=== PATIENT | male | born 1935 | race Caucasian/White ===

== ENCOUNTER 2024-07-17 14:53 | Outpatient (OUT) | payer MEDICARE, SELFPAY ==
--- NOTE | 2024-07-17 15:02 | MR_ITS ---
[place] [id number] Patient Name: ADIS OREILLY MRN: [facility]:[id number] date: 1935 Sex: M Assigned Patient Location: MRI Current Patient Location: Accession/Order Number: [id number] Exam Date: 07/17/2024 15:10 Report Date: 07/19/2024 08:33 At the request of: ALBERT COCHRAN Procedure: MR knee RT wo con EXAMINATION: MR knee RT wo con HISTORY: Right Knee Mass ; right knee pain after falling COMPARISON: No relevant comparison available. TECHNIQUE: A complete multi-planar MRI was performed. FINDINGS: MEDIAL COMPARTMENT MEDIAL MENISCUS: Marked tear versus maceration of the knee, posterior junction, and posterior horn. CARTILAGE: Moderate thinning. No focal defect. BONES: Small periarticular degenerative osteophytes. MCL AND MEDIAL CAPSULE: High-grade strain versus partial tear. LATERAL COMPARTMENT LATERAL MENISCUS: Possible tear involving undersurface of posterior horn. Prominent intrasubstance degeneration. CARTILAGE: Mild thinning without focal defect. BONES: Edema within posterior medial aspect of lateral femoral condyle at site of anterior cruciate ligament attachment. Prominent marrow edema within anterior lateral tibial plateau. Deep to site of anterior cruciate ligament attachment. No appreciable cortical disruption. Small periarticular degenerative osteophytes. LCL/POSTEROLAT COMPLEX: No appreciable tear or significant strain. ANTERIOR COMPARTMENT PATELLA: Small focal area of subchondral edema involving the superior aspect of the lateral facet due to overlying cartilage defect. CARTILAGE: Moderate-marked thinning with small focal defect involving superior lateral facet. TENDONS: Normal. EFFUSION: Moderate joint effusion. ACL: Disrupted. PCL: Normal appearing ligament. MENISCOFEMORAL: No appreciable abnormality of the meniscofemoral ligaments. OTHER: Large Henderson's cyst, 7.8 x 4.0 x 4.6 cm. MR/MR knee RT wo con IMPRESSION: 1. Marked tear versus maceration of medial meniscus. 2. High-grade strain versus partial tear of medial collateral ligament. 3. 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 4. Possible tear involving undersurface of posterior horn of lateral meniscus, but I suspect this is secondary to prominent intrasubstance degeneration. 5. Disruption of the anterior cruciate ligament with edema within the lateral femoral condyle and anterior tibial plateau likely secondary to the injury/disruption. Bone bruising from impact injury is not completely excluded. 6. Moderate joint effusion. 7. Large Henderson's cyst, 7.8 cm. Electronically authenticated by: CHIKI FRANKS Date: 07/19/2024 08:33
== END 2024-07-17 14:54 | disposition home or self-care (01) ==
LOC: MRI 14:58
PROVIDERS: PCP Family Medicine; Visit Provider Orthopaedic Surgery
DX: R22.41 Localized swelling, mass and lump, right lower limb (principal); S83.241A Other tear of medial meniscus, current injury, right knee, initial encounter; S83.411A Sprain of medial collateral ligament of right knee, initial encounter; M71.21 Synovial cyst of popliteal space [Baker], right knee; M23.611 Other spontaneous disruption of anterior cruciate ligament of right knee
CPT/HCPCS: 73721